=== PATIENT | male | born 1945 | race Caucasian/White ===

== ENCOUNTER 2023-04-05 17:50 | Emergency (ER) | payer OTHER, SELFPAY ==
[2023-04-05 18:47] LABS: Hemoglobin 11.8 g/dL (13.0-18.0); Mean Corp Hgb Conc. 34.7 g/dL (33.0-37.0); Mean Corpuscular Hgb 31.2 pg (27.0-31.0); Mean Corpuscular Volume 89.9 fL (80.0-94.0); Mean Platelet Volume 8.9 fL (7.4-10.4); Platelet Count 268 10^3/uL (130-400); Red Blood Cell Count 3.78 10^6/uL (4.70-6.10); Red Cell Dist. Width 14.1 % (11.5-14.5); White Blood Cell Count 5.8 10^3/uL (4.8-10.8)
[2023-04-05 19:05] LABS: COVID-19 Antigen Negative (Negative)
[2023-04-05 19:07] LABS: ALT (SGPT) 42 U/L (0-50); AST (SGOT) 33 U/L (17-59); Albumin 3.3 g/dl (3.5-5.0); Alkaline Phosphatase 114 U/L (38-126); Blood Urea Nitrogen 32 mg/dl (9-20); Calcium 9.1 mg/dl (8.4-10.2); Carbon Dioxide 23 mmol/L (22-30); Chloride 103 mmol/L (98-107); Glucose 146 mg/dl (70-99); Potassium 4.6 mmol/L (3.5-5.1); Sodium 131 mmol/L (135-145); Total Bilirubin 0.7 mg/dl (0.2-1.3); Total Protein 5.8 g/dl (6.3-8.2); eGFR > 60.00
[2023-04-05 19:15] LABS: Absolute Neutrophils -Man Diff 3.9 10^3/uL (1.4-6.5); Band Neutrophils 2 % (0-3); Eosinophils 1 % (0-6); Lymphocytes 6 % (20-51); Monocytes 25 % (2-9); Normal RBC Morphology Yes; Platelets Checked Yes; Segmented Neutrophils 66 % (42-75); Total Cells Counted 100
[2023-04-05 20:37] VITALS: BMI 23.6
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
[2023-04-05] MEDS: TYLENOL 650 MG PO (21:24)
== END 2023-04-05 22:12 | disposition home or self-care (01) ==
LOC: EMR 17:50
PROVIDERS: Emergency Medicine; EMERGENCY PHYSICIAN Emergency Medicine; FAMILY PHYSICIAN Family Medicine
DX: R53.83 Other fatigue (principal); R05.9 Cough, unspecified; I48.91 Unspecified atrial fibrillation; J10.1 Influenza due to other identified influenza virus with other respiratory manifestations; J44.9 Chronic obstructive pulmonary disease, unspecified; I10 Essential (primary) hypertension; Z86.73 Personal history of transient ischemic attack (TIA), and cerebral infarction without residual deficits
CPT/HCPCS: 99283; 71046; 80053; 85025; 87502; 87811

== ENCOUNTER 2023-07-23 06:06 | Day surgery (SDC) | payer OTHER, SELFPAY ==
[2023-07-17 09:33] VITALS: BMI 23.1
[2023-07-17 09:57] LABS: Hematocrit 38.4 % (39.0-52.0); Hemoglobin 12.6 g/dL (13.0-18.0); Mean Corp Hgb Conc. 32.8 g/dL (33.0-37.0); Mean Corpuscular Hgb 29.6 pg (27.0-31.0); Mean Corpuscular Volume 90.1 fL (80.0-94.0); Mean Platelet Volume 8.9 fL (7.4-10.4); Platelet Count 184 10^3/uL (130-400); Red Blood Cell Count 4.26 10^6/uL (4.70-6.10); Red Cell Dist. Width 14.5 % (11.5-14.5); White Blood Cell Count 6.2 10^3/uL (4.8-10.8)
[2023-07-17 10:07] LABS: APTT 32.6 Sec (23.4-35.0); INR 1.13; PT 14.3 Sec (11.4-14.6)
[2023-07-17 10:10] LABS: Blood Urea Nitrogen 23 mg/dl (9-20); Calcium 9.4 mg/dl (8.4-10.2); Carbon Dioxide 29 mmol/L (22-30); Chloride 107 mmol/L (98-107); Estimated Creatinine Clearance 72 ml/min; Glucose 116 mg/dl (70-99); Potassium 4.5 mmol/L (3.5-5.1); Sodium 138 mmol/L (135-145); eGFR > 60.00
[2023-07-17 10:16] LABS: Urine Albumin Negative (Neg - Trace); Urine Bilirubin Negative (Negative); Urine Character Slightly Cloudy (Clear); Urine Color Yellow; Urine Glucose Negative (Negative); Urine Ketone Negative (Negative); Urine Leukocyte Negative (Negative); Urine Nitrite Negative (Negative); Urine Occult Blood 4+ (Negative); Urine Urobilinogen Negative (Neg - 1+)
[2023-07-17 10:47] LABS: Urine Mucus Few
[2023-07-17 10:48] LABS: Urine Red Blood Cell >100 /HPF (0-2)
[2023-07-17 10:49] LABS: Urine Amorphous Seen; Urine Bacteria Few (Negative)
[2023-07-23] VITALS (7 sets, daily range): BP systolic 90–145; BP diastolic 53–79; BMI 23.1
[2023-07-23] MEDS: CYSVIEW KIT 100 MG INTRAVES (06:51)
[2023-07-23] MEDS: NORMOSOL-R 1000 IV (06:52)
[2023-07-23] MEDS: LOPRESSOR 12.5 MG PO (07:04)
[2023-07-23] MEDS: KEPPRA 500 MG PO (07:04)
[2023-07-23] MEDS: Pyridium 200 MG PO (08:45)
== END 2023-07-23 10:25 | disposition home or self-care (01) ==
LOC: SDS 06:06
PROVIDERS: ATTENDING PHYSICIAN Specialist; FAMILY PHYSICIAN Family Medicine; OTHER PHYSICIAN Internal Medicine Cardiovascular Disease
DX: D49.4 Neoplasm of unspecified behavior of bladder (principal); N30.80 Other cystitis without hematuria; Z85.51 Personal history of malignant neoplasm of bladder
CPT/HCPCS: 52224; C9738; 88307; 36415; 80048; 81003; 81015; 85027; 85610; 85730; 88342

== ENCOUNTER 2024-01-12 06:27 | Day surgery (SDC) | payer OTHER, SELFPAY ==
[2024-01-07 09:42] VITALS: BMI 23.3
[2024-01-07 11:04] LABS: Hematocrit 42.1 % (39.0-52.0); Hemoglobin 13.6 g/dL (13.0-18.0); Mean Corp Hgb Conc. 32.3 g/dL (33.0-37.0); Mean Corpuscular Hgb 30.3 pg (27.0-31.0); Mean Corpuscular Volume 93.8 fL (80.0-94.0); Mean Platelet Volume 9.3 fL (7.4-10.4); Platelet Count 202 10^3/uL (130-400); Red Blood Cell Count 4.49 10^6/uL (4.70-6.10); Red Cell Dist. Width 15.1 % (11.5-14.5); White Blood Cell Count 6.1 10^3/uL (4.8-10.8)
[2024-01-07 12:00] LABS: Blood Urea Nitrogen 34 mg/dl (9-20); Calcium 9.7 mg/dl (8.4-10.2); Carbon Dioxide 28 mmol/L (22-30); Chloride 104 mmol/L (98-107); Estimated Creatinine Clearance 58 ml/min; Glucose 80 mg/dl (70-99); Potassium 4.2 mmol/L (3.5-5.1); Sodium 142 mmol/L (135-145); eGFR > 60.00
[2024-01-12] VITALS (13 sets, daily range): BP systolic 94–132; BP diastolic 53–79; BMI 23.3
[2024-01-12] MEDS: CYSVIEW KIT 100 MG INTRAVES (09:46)
[2024-01-12] MEDS: SYRINGE NON-PUMP 50 MG IRRIG ×2 (11:07→11:09)
[2024-01-12] MEDS: SYRINGE NON-PUMP 50 ML IRRIG ×2 (11:07→11:09)
== END 2024-01-12 13:25 | disposition home or self-care (01) ==
LOC: SDS 06:27
PROVIDERS: ATTENDING PHYSICIAN Specialist; FAMILY PHYSICIAN Family Medicine; OTHER PHYSICIAN Internal Medicine Cardiovascular Disease
DX: C67.9 Malignant neoplasm of bladder, unspecified (principal)
CPT/HCPCS: 52235; C9738; 88307; 36415; 80048; 85027; 93005; A9589

== ENCOUNTER 2024-01-20 23:53 | Emergency (ER) | payer OTHER, SELFPAY ==
[2024-01-20 23:57] VITALS: BP 156/74; BMI 23.2
[2024-01-21 00:12] LABS: % Basophils 0.5 % (0-2); % Eosinophils 9.8 % (0-6); % Immature Granulocytes 0.2 % (0-0.5); % Lymphocytes 8.6 % (20.5-51.1); % Monocytes 11.3 % (1.7-9.3); % Neutrophils 69.6 % (42.2-75.2); Absolute Eosinophils 0.8 10^3/uL (0-0.7); Absolute Lymphocytes 0.7 10^3/uL (1.2-3.4); Absolute Monocytes 0.9 10^3/uL (0.1-0.6); Absolute Neutrophils 5.7 10^3/uL (1.4-6.5); Hematocrit 36.3 % (39.0-52.0); Hemoglobin 12.6 g/dL (13.0-18.0); Mean Corp Hgb Conc. 34.7 g/dL (33.0-37.0); Mean Corpuscular Hgb 30.2 pg (27.0-31.0); Mean Corpuscular Volume 87.1 fL (80.0-94.0); Mean Platelet Volume 9.1 fL (7.4-10.4); Nucleated Red Blood Cells % 0 % (-); Platelet Count 141 10^3/uL (130-400); Red Blood Cell Count 4.17 10^6/uL (4.70-6.10); White Blood Cell Count 8.2 10^3/uL (4.8-10.8)
[2024-01-21 00:30] LABS: ALT (SGPT) 30 U/L (0-50); AST (SGOT) 27 U/L (17-59); Albumin 3.8 g/dl (3.5-5.0); Alkaline Phosphatase 158 U/L (38-126); Blood Urea Nitrogen 31 mg/dl (9-20); Calcium 9.3 mg/dl (8.4-10.2); Carbon Dioxide 21 mmol/L (22-30); Chloride 106 mmol/L (98-107); Estimated Creatinine Clearance 63 ml/min; Glucose 127 mg/dl (70-99); Potassium 4.2 mmol/L (3.5-5.1); Sodium 140 mmol/L (135-145); Total Bilirubin 0.4 mg/dl (0.2-1.3); Total Protein 6.1 g/dl (6.3-8.2); eGFR > 60.00
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
[2024-01-21 02:05] LABS: Urine Albumin 3+ (Neg - Trace); Urine Bilirubin Negative (Negative); Urine Character Bloody (Clear); Urine Color Red; Urine Glucose Negative (Negative); Urine Ketone Negative (Negative); Urine Leukocyte 1+ (Negative); Urine Nitrite Positive (Negative); Urine Occult Blood 4+ (Negative); Urine Specific Gravity 1.015 (<1.030); Urine Urobilinogen Negative (Neg - 1+)
[2024-01-21 02:18] LABS: Urine Red Blood Cell >100 /HPF (0-2)
--- NOTE | 2024-01-21 03:22 | EDRN ---
20 trinidadian catheter,(silicone due to latex allergy) was placed without difficulty. Bloody drainage in return. Dr. Seo aware. Multiple manual irrigations completed.
[2024-01-21] MEDS: MONUROL 3 GM PO (03:39)
--- NOTE | 2024-01-21 03:52 | EDRN ---
Leg bag put on at this time as patient is discharged
== END 2024-01-21 03:53 | disposition home or self-care (01) ==
LOC: EMR 23:53
PROVIDERS: EMERGENCY PHYSICIAN Emergency Medicine; FAMILY PHYSICIAN Family Medicine
DX: R31.0 Gross hematuria (principal); I48.91 Unspecified atrial fibrillation; J44.9 Chronic obstructive pulmonary disease, unspecified; I10 Essential (primary) hypertension; Z86.73 Personal history of transient ischemic attack (TIA), and cerebral infarction without residual deficits; Z98.890 Other specified postprocedural states; Z79.01 Long term (current) use of anticoagulants
CPT/HCPCS: 51702; 99283; 80053; 81003; 81015; 85025; 87086

== ENCOUNTER 2024-01-21 15:58 | Inpatient (IN) | payer OTHER, SELFPAY ==
[2024-01-21] VITALS (11 sets, daily range): BP systolic 90–144; BP diastolic 57–68; BMI 23.8; BMI 22.4
[2024-01-21 13:09] LABS: Urine Albumin 3+ (Neg - Trace); Urine Bilirubin 1+ (Negative); Urine Character Bloody (Clear); Urine Color Red; Urine Glucose Negative (Negative); Urine Ketone 1+ (Negative); Urine Leukocyte Negative (Negative); Urine Nitrite Negative (Negative); Urine Occult Blood 4+ (Negative); Urine Specific Gravity 1.015 (<1.030); Urine Urobilinogen Negative (Neg - 1+)
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
[2024-01-21 13:26] LABS: Urine Red Blood Cell >100 /HPF (0-2)
--- NOTE | 2024-01-21 14:22 | CON.MD ---
Addendum entered and electronically signed by Puneet Ramirez Jr., MD 01/21/24 16:56:
pt re-examined
on moderate drip urine is very light pink with no clots
labs stable
pt comfortable
will observe on cbi for now
Original Note:
Consultation - Medical
-
see dictated note
pt with afib/remote hx of stroke on eliquis
hx of bladder cancer and prior episodes of clot retention after procedures
underwent turbt with dr del toro last week- eliquis held for 7 days- restarted on thursday- now with gross hematuria and clot retention- mitchell was placed in ER yesterday but returned to day
3 way mitchell placed- moderate amount of clot irrigated- on high rate drip urine pink
plan
admit to med service
hold eliquis and any blood thinners
cbi
possible OR if fails to clear
reviewed with pt and at bedside
[2024-01-21] MEDS: NSS 1000 IV (14:43)
[2024-01-21 14:45] LABS: % Basophils 0.6 % (0-2); % Eosinophils 5.1 % (0-6); % Immature Granulocytes 0.3 % (0-0.5); % Lymphocytes 10.2 % (20.5-51.1); % Monocytes 13.8 % (1.7-9.3); Absolute Eosinophils 0.4 10^3/uL (0-0.7); Absolute Lymphocytes 0.7 10^3/uL (1.2-3.4); Hematocrit 36.5 % (39.0-52.0); Hemoglobin 12.3 g/dL (13.0-18.0); Mean Corp Hgb Conc. 33.7 g/dL (33.0-37.0); Mean Corpuscular Hgb 29.6 pg (27.0-31.0); Nucleated Red Blood Cells % 0 % (-); Red Blood Cell Count 4.15 10^6/uL (4.70-6.10); Red Cell Dist. Width 14.8 % (11.5-14.5); White Blood Cell Count 7.1 10^3/uL (4.8-10.8)
[2024-01-21 15:01] LABS: ALT (SGPT) 27 U/L (0-50); AST (SGOT) 26 U/L (17-59); Albumin 3.5 g/dl (3.5-5.0); Alkaline Phosphatase 118 U/L (38-126); Blood Urea Nitrogen 27 mg/dl (9-20); Calcium 9.3 mg/dl (8.4-10.2); Carbon Dioxide 25 mmol/L (22-30); Chloride 104 mmol/L (98-107); Estimated Creatinine Clearance 70 ml/min; Glucose 98 mg/dl (70-99); Potassium 3.7 mmol/L (3.5-5.1); Sodium 137 mmol/L (135-145); Total Bilirubin 0.6 mg/dl (0.2-1.3); Total Protein 5.7 g/dl (6.3-8.2); eGFR > 60.00
[2024-01-21 15:05] LABS: Platelet Count 160 10^3/uL (130-400)
[2024-01-21 15:06] LABS: Mean Platelet Volume 9.2 fL (7.4-10.4)
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
[2024-01-21] MEDS: ANCEF 5 IV ×2 (16:48→23:31)
--- NOTE | 2024-01-21 17:30 | PTCARENOTE ---
Patient received to room 416-02 from ED on stretcher. Patient assisted into bed by nursing staff and oriented to room. CBI running as ordered with light punch colored drainage in urine bag. Call bob in reach and patient verbalizes understanding to
ring for needs.
--- NOTE | 2024-01-21 18:26 | PTCARENOTE ---
Patient with asymptomatic a-fib/flutter rate 40-50 bpm. Patient verbalizes he usually has a heart rate in the 50's. Telemetry recording placed in chart. Will continue to monitor.
[2024-01-21] MEDS: KEPPRA 500 MG PO (20:55)
[2024-01-21 22:29] LABS: Hemoglobin 11.7 g/dL (13.0-18.0)
[2024-01-22] MEDS: NSS 1000 IV ×2 (02:31→15:11)
[2024-01-22 03:21] VITALS: BP 119/67
--- NOTE | 2024-01-22 06:32 | W.PN.URO.CBU ---
Today's Communication / Plan
-
wean cbi as tolerated
Assessment / Plan
-
post op hematuria/clot retention
pt improving
urine clear in moderate rate cbi
no need for OR today
UOOB/regular diet/check labs and wean cbi
hold eliquis- will discuss with dr del toro timing of restart
possible OR if hematuria recurrs
Diagnosis
-
Date of Service: January 22, 2024
-
Patient Diagnosis:
s/p TURBT- post op hematuria
Subjective
-
pt comfortable
stable overnight
urine clear on moderate drip cbi
Objective
-
Vital Signs
Temp Pulse Resp BP Pulse Ox
97.5 F 57 18 119/67 97
01/22/24 03:21 01/22/24 03:21 01/22/24 03:21 01/22/24 03:21 01/22/24 03:21
Intake and Output
01/20/24 01/21/24 01/22/24
06:59 06:59 06:59
Intake Total 1080 / 1080
Output Total 700 / 700
Balance 380 / 380
Intake:
Oral fluids 120 / 120
IV fluids (Total) 960 / 960
Output:
True Urine Output from CBI 700 / 700
Review of Systems
-
Constitutional: Fatigue
Respiratory: No Symptoms
Cardiac: No Symptoms
Abdomen/GI: No Symptoms
Physical Exam
-
General - no acute distress
Abdomen - soft, non-tender
Genitalia - normal- 3 way [address]
Skin - warm & dry with no rash
Neuro - AOx3, no motor deficits
Extremities - no clubbing, no cyanosis, no edema
[2024-01-22 06:39] LABS: Hematocrit 34.1 % (39.0-52.0); Hemoglobin 11.6 g/dL (13.0-18.0); Mean Corpuscular Hgb 30.5 pg (27.0-31.0); Mean Corpuscular Volume 89.7 fL (80.0-94.0); Mean Platelet Volume 8.8 fL (7.4-10.4); Platelet Count 124 10^3/uL (130-400); Red Cell Dist. Width 14.8 % (11.5-14.5); White Blood Cell Count 4.6 10^3/uL (4.8-10.8)
[2024-01-22 06:58] LABS: Blood Urea Nitrogen 19 mg/dl (9-20); Calcium 8.7 mg/dl (8.4-10.2); Carbon Dioxide 28 mmol/L (22-30); Chloride 108 mmol/L (98-107); Estimated Creatinine Clearance 67 ml/min; Glucose 75 mg/dl (70-99); Magnesium 1.9 mg/dl (1.6-2.3); Potassium 4.2 mmol/L (3.5-5.1); Sodium 141 mmol/L (135-145); eGFR > 60.00
[2024-01-22 07:34] VITALS: BP 119/62
[2024-01-22] MEDS: TOPROL XL 12.5 MG PO (08:48)
[2024-01-22] MEDS: KEPPRA 500 MG PO ×2 (08:49→20:35)
[2024-01-22] MEDS: ANCEF 5 IV ×3 (08:49→23:27)
--- NOTE | 2024-01-22 09:58 | W.PN.HOSP.TC ---
Today's Communication/Plan
-
see outlined plan
Assessment / Plan
Assessment / Plan
Assessment:
Hematuria
Bladder Tumor status post transurethral resection of bladder tumor on 01/12/24
- continue CBI via [address] way Amos
- appreciate Urology
- trend Hb. relatively stable >11
- continue IV Cefazolin started by Urology; pending culture
- hold Eliquis until cleared by Urology to resume
Seizures
- continue Keppra
Atrial Fibrillation
- hold Eliquis until cleared by Urology to resume
- Metoprolol with hold parameters
Essential Hypertension
- hold spironolactone
COPD
- albuterol PRN
Thrombocytopenia
- suspect consumptive in setting of hematuria
- will monitor
- not currently on heparin based products
DVT ppx: SCDs
Code: Full
Anticipated Discharge: 24 - 48 hours
Subjective/Interval History
-
Date of Service: January 22, 2024
comfortable, no overnight events
urine is now clearing on the CBI
Objective Data
-
Labs:
Laboratory Results
01/21/24 01/22/24
21:59 06:01
WBC 4.6 L
Hgb 11.7 L 11.6 L
Hct 34.1 L
Plt Count 124 L D
Sodium 141
Potassium 4.2
Chloride 108 H
Carbon Dioxide 28
BUN 19
Creatinine 1.0
Glucose 75
Calcium 8.7
Vital Signs:
Vital Signs
Temp Pulse Resp BP Pulse Ox
97.8 F 57 19 119/62 98
01/22/24 07:34 01/22/24 07:34 01/22/24 07:34 01/22/24 07:34 01/22/24 07:34
I&O
01/21/24 01/22/24 01/23/24
06:59 06:59 06:59
Intake Total 1080 / 1080
Output Total 700 / 700
Balance 380 / 380
Physical Exam
-
General: No Apparent Distress
HEENT: Normocephalic and Atraumatic
Respiratory: Negative Wheezes
Cardiac: Regular Rhythm and S1/S2
GI: Soft and Nontender
Genito-urinary: Amos and Continuous Bladder Irrigation
Musculoskeletal: No Edema
Neuro: AO x 3
Hematologic / Lymphatic: No Lymphadenopathy
Psych: Calm
Data Reviewed
-
Total Time Spent with Patient (in minutes): 41
Labs: Labs Reviewed by me
[2024-01-22 11:05] VITALS: BP 126/67
--- NOTE | 2024-01-22 14:56 | CM ---
Pt seen bedside w/ family. Pt lives w/ spouse in [place] to enter home
Independent. Per pt he has cane and walker but does not use them. Pt has shower chair, shower rails and raised toilet seat in the home but denies the need for them so he does not use.
Denies SNF hx. Engaged in OP rehab at [place] in the past
Had [facility] VN/PT in the past
Denies financial insecurities
Address, point of contacts and insurance verified
PCP: Dr. Jairo Naylor
Pharmacy: [facility]
Per pt, he does not wish to be seen by PT/OT as he is independent and have been walking around while in hospital independently
Per pt, spouse will transport home at d/c
Plan: Home no needs anticipated
--- NOTE | 2024-01-22 15:09 | PN.CDI ---
CDI
- -
CDI:
Physician Documentation Request
Admit Date: 01/21/24 15:58
Dear Doctor Luis Miguel,
Patient admitted with hematuria.
ED note,'....on Eliquis bladder cancer with transurethral resection of bladder tumor with bluelight cystoscopy and intravesical administration of chemotherapy January [address] Hdz.
01/21 PN, 'Hematuria....Bladder Tumor status post transurethral resection of bladder tumor on 01/12/24.'
01/21 WBC 4.6, RBC 3.80 and platelet count 124.
Based on the above, please clarify in the progress notes, the appropriate diagnosis, if significant, that supports the above abnormalities and additional evaluation, monitoring and/or treatment rendered:
Pancytopenia due to intravesical administration of chemotherapy and bladder cancer
Pancytopenia, other etiology
Other
Use of terms such as suspected, likely, concern for, or probable (associated with a specific diagnosis that is being evaluated, monitored, or treated as if it exists) are acceptable and can be coded in the inpatient setting, when documented at the
time of discharge.
Thank you,
Melly MCCORMICK,RN,CCDS
CDI Specialist
Available via [place] text
Please use your independent medical judgment in providing your response.
[2024-01-22 16:19] VITALS: BP 113/60
[2024-01-22 19:00] VITALS: BP 146/61
[2024-01-22 23:00] VITALS: BP 125/64
--- NOTE | 2024-01-23 01:17 | W.PN.UPDATE ---
Addendum entered and electronically signed by RADHA Chambers 01/23/24 03:35:
RN reports pt has not needed any more irrigation for clots. urine clear now. Will clamp cbi at 5 am.
Original Note:
Update Note
Progress Note Update
2229 RN stated there is order to stop cbi at midnight. Rn concerned as pt has been needing hand irrigation along with CBI for large amt clots. Urine remains light pink. Will hold off clamping at midnight for now, but if pt needing less hand
irrigation will clamp in am.
[2024-01-23 03:00] VITALS: BP 121/65
[2024-01-23 06:52] LABS: Hematocrit 35.5 % (39.0-52.0); Hemoglobin 11.7 g/dL (13.0-18.0); Mean Corpuscular Hgb 30.5 pg (27.0-31.0); Mean Corpuscular Volume 92.7 fL (80.0-94.0); Mean Platelet Volume 8.9 fL (7.4-10.4); Platelet Count 127 10^3/uL (130-400); Red Blood Cell Count 3.83 10^6/uL (4.70-6.10); Red Cell Dist. Width 14.9 % (11.5-14.5); White Blood Cell Count 5.9 10^3/uL (4.8-10.8)
[2024-01-23 07:10] VITALS: BP 124/63
[2024-01-23 07:29] LABS: Blood Urea Nitrogen 20 mg/dl (9-20); Calcium 8.8 mg/dl (8.4-10.2); Carbon Dioxide 28 mmol/L (22-30); Chloride 107 mmol/L (98-107); Estimated Creatinine Clearance 67 ml/min; Glucose 93 mg/dl (70-99); Potassium 4.1 mmol/L (3.5-5.1); Sodium 139 mmol/L (135-145); eGFR > 60.00
--- NOTE | 2024-01-23 08:24 | W.PN.HOSP.TC ---
Addendum entered and electronically signed by Eden Bolanos MD 01/23/24 15:24:
Amos removed, voided well - ok'd by Urology for DC and resume Eliquis 01/25
Original Note:
Today's Communication/Plan
-
CBI clamped
await Urology recs today re removing CBI and/or Amos. Also clarification on further need of antibiotics
Assessment / Plan
Assessment / Plan
Assessment:
Hematuria
Bladder Tumor status post transurethral resection of bladder tumor on 01/12/24
- CBI via 3 way Amos; currently clamped
- appreciate Urology
- trend Hb. relatively stable >11
- IV Cefazolin per Urology; culture is negative
- hold Eliquis until cleared by Urology to resume
Seizures
- continue Keppra
Atrial Fibrillation
- hold Eliquis until cleared by Urology to resume
- Metoprolol with hold parameters
Essential Hypertension
- hold spironolactone
COPD
- albuterol PRN
No Pancytopenia (leukopenia is transient and it was low for 1 day, thrombocytopenia and anemia from bleeding and consumption of platelets due to bleeding)
- suspect consumptive in setting of hematuria
- will monitor
- not currently on heparin based products
DVT ppx: SCDs
Code: Full
Anticipated Discharge: Within 24 hours
Subjective/Interval History
-
Date of Service: January 23, 2024
CBI clamped at 5 AM and urine now yellow
he denies any complaints
Objective Data
-
Labs:
Laboratory Results
01/23/24
06:32
WBC 5.9
Hgb 11.7 L
Hct 35.5 L
Plt Count 127 L
Sodium 139
Potassium 4.1
Chloride 107
Carbon Dioxide 28
BUN 20
Creatinine 1.0
Glucose 93
Calcium 8.8
Vital Signs:
Vital Signs
Temp Pulse Resp BP Pulse Ox
97.6 F 58 18 124/63 97
01/23/24 07:10 01/23/24 07:10 01/23/24 07:10 01/23/24 07:10 01/23/24 07:10
I&O
01/22/24 01/23/24 01/24/24
06:59 06:59 06:59
Intake Total 1080 / 1080 960 / 960
Output Total 700 / 700 1200 / 1200
Balance 380 / 380 -240 / -240
Physical Exam
-
General: No Apparent Distress
HEENT: Normocephalic and Atraumatic
Respiratory: Negative Wheezes
Cardiac: Regular Rhythm and S1/S2
GI: Soft
Genito-urinary: No Costovertebral Tender, Amos and Continuous Bladder Irrigation (now clamped)
Neuro: AO x 3
Hematologic / Lymphatic: No Lymphadenopathy
Psych: Calm
Data Reviewed
-
Total Time Spent with Patient (in minutes): 42
Labs: Labs Reviewed by me
[2024-01-23] MEDS: ANCEF 5 IV (08:31)
[2024-01-23] MEDS: TOPROL XL 12.5 MG PO (08:32)
[2024-01-23] MEDS: KEPPRA 500 MG PO (08:32)
--- NOTE | 2024-01-23 10:51 | W.PN.URO.CBU ---
Today's Communication / Plan
-
Remove mitchell
Hold Eliquis until 01/25
Follow up with Ru[facility]
Assessment / Plan
-
78M with post op hematuria/clot retention after TURBT, started after resuming Eliquis
Hematuria resolved with CBI clamped overnight
Remove mitchell this AM for trial of void
Hold Eliquis for additional 3 days, can restart on 01/25
Stable for discharge from standpoint if voiding without difficulty or hematuria this afternoon
Diagnosis
-
Date of Service: January 23, 2024
-
Patient Diagnosis:
s/p TURBT- post op hematuria
Subjective
-
Hematuria resolved
Catheter well tolerated
Objective
-
Vital Signs
Temp Pulse Resp BP Pulse Ox
97.6 F 58 18 124/63 97
01/23/24 07:10 01/23/24 07:10 01/23/24 07:10 01/23/24 07:10 01/23/24 07:10
Intake and Output
01/22/24 01/23/24 01/24/24
06:59 06:59 06:59
Intake Total 1080 / 1080 960 / 960
Output Total 700 / 700 1200 / 1200
Balance 380 / 380 -240 / -240
Intake:
Oral fluids 120 / 120 960 / 960
IV fluids (Total) 960 / 960
Output:
True Urine Output from CBI 700 / 700 1200 / 1200
Laboratory Results
01/23/24 06:32
01/23/24 06:32
Physical Exam
-
General - well developed, well nourished, no acute distress
Chest - clear bilaterally
Abdomen - soft, non-tender
- mitchell in place, clear urine off CBI
[2024-01-23 11:35] VITALS: BP 100/51
--- NOTE | 2024-01-23 11:44 | CM ---
CM reviewed pt with Dr Bolanos- ADC today/tomorrow pending uro
Bedside meeting with pt and spouse
No dc noted
IMM verbally completed- copy provided
Discharge Disposition- home, no needs- family transport
--- NOTE | 2024-01-23 14:30 | W.DS.TRANS ---
DC Summary - [employer]
-
Discharge Instructions:
Sleep Apnea Risk Intermediate
Discharge Diagnosis/Procedures hematuria and clot retention requiring CBI
Diet Regular
Activity As tolerated
Bathing Restrictions None
Instructions:
Stand-Alone Forms:
Changes to Home Medications: No
Discharge Medications:
DC Medications w/original date entered in [employer]
vitamin B complex 1 tab PO DAILY Supplement 10/20/18
levetiracetam 500 mg tablet 500 mg PO BID Seizures 07/28/20
ascorbic acid (vitamin C) 500 mg tablet (Vitamin C) 1,000 mg PO DAILY Supplement 03/29/23
Methyl Combo 1 cap PO BID 01/05/24
cholecalciferol (vitamin D3) 50 mcg (2,000 unit) capsule (Vitamin D3) 50 mcg PO DAILY Supplement 01/05/24
glutathione 1 tab PO BID Supplement 01/05/24
hawthorn alfonso 565 mg PO BID Supplement 01/05/24
magnesium glycinate 100 mg (as glycinate) tablet 100 mg PO BID Supplement 01/05/24
metoprolol succinate 25 mg tablet,extended release 24 hr 12.5 mg PO DAILY Arrhythmia 01/05/24
prasterone (dhea)-calcium carbonate 10 mg-47 mg calcium tablet (DHEA) 2 tab PO DAILY Supplement 01/05/24
albuterol sulfate 90 mcg/actuation aerosol inhaler 2 puff inhalation R Q4HPRN PRN sob 01/21/24
coenzyme Q10 100 mg capsule (CoQ-10) 300 mg PO QPM Supplement 01/21/24
spironolactone 25 mg tablet 12.5 mg PO DAILY Blood Pressure 01/21/24
apixaban 5 mg tablet (Eliquis) 5 mg PO BID #60 tabs 01/23/24
Home Medication Changes
Pending Results: No
Total time spent discharging patient (in min): 41
[2024-01-23 15:17] VITALS: BP 111/58
== END 2024-01-23 16:44 | disposition home or self-care (01) | DRG 696 ==
LOC: 4 WEST ACU 15:58
PROVIDERS: Nurse Practitioner; Physician Assistant; ADMITTING PHYSICIAN Student in an Organized Health Care Education/Training Program; ATTENDING PHYSICIAN Internal Medicine; CONSULT PHYSICIAN Specialist; EMERGENCY PHYSICIAN Student in an Organized Health Care Education/Training Program; FAMILY PHYSICIAN Family Medicine
DX: R31.9 Hematuria, unspecified (principal); D68.9 Coagulation defect, unspecified; G40.909 Epilepsy, unspecified, not intractable, without status epilepticus; I10 Essential (primary) hypertension; J44.9 Chronic obstructive pulmonary disease, unspecified; D64.9 Anemia, unspecified; D69.59 Other secondary thrombocytopenia; Z79.01 Long term (current) use of anticoagulants; Z86.73 Personal history of transient ischemic attack (TIA), and cerebral infarction without residual deficits; Z85.51 Personal history of malignant neoplasm of bladder
CPT/HCPCS: 51702; 80048; 80053; 81003; 81015; 83735; 85018; 85025; 85027; 93005; 96360; 96361; 99285

== ENCOUNTER 2024-03-21 23:40 | Inpatient (IN) | payer OTHER, SELFPAY ==
[2024-03-21 20:32] VITALS: BP 123/58
[2024-03-21 20:38] VITALS: BMI 23.4
[2024-03-21 20:49] LABS: % Basophils 0.3 % (0-2); % Immature Granulocytes 0.3 % (0-0.5); % Lymphocytes 2.4 % (20.5-51.1); Absolute Eosinophils 0.2 10^3/uL (0-0.7); Absolute Lymphocytes 0.3 10^3/uL (1.2-3.4); Absolute Monocytes 1.1 10^3/uL (0.1-0.6); Absolute Neutrophils 10.6 10^3/uL (1.4-6.5); Hematocrit 39.4 % (39.0-52.0); Mean Corpuscular Hgb 29.7 pg (27.0-31.0); Mean Corpuscular Volume 90.2 fL (80.0-94.0); Mean Platelet Volume 8.7 fL (7.4-10.4); Nucleated Red Blood Cells % 0 % (-); Platelet Count 207 10^3/uL (130-400); Red Blood Cell Count 4.37 10^6/uL (4.70-6.10); White Blood Cell Count 12.3 10^3/uL (4.8-10.8)
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
[2024-03-21 21:01] VITALS: BP 121/61
[2024-03-21 21:02] LABS: Lactic Acid 0.9 mmol/L (0.7-2.0)
[2024-03-21 21:03] LABS: ALT (SGPT) 20 U/L (0-50); AST (SGOT) 19 U/L (17-59); Albumin 3.4 g/dl (3.5-5.0); Alkaline Phosphatase 132 U/L (38-126); Blood Urea Nitrogen 35 mg/dl (9-20); Calcium 9.4 mg/dl (8.4-10.2); Carbon Dioxide 23 mmol/L (22-30); Chloride 104 mmol/L (98-107); Estimated Creatinine Clearance 54 ml/min; Glucose 144 mg/dl (70-99); Potassium 4.2 mmol/L (3.5-5.1); Sodium 132 mmol/L (135-145); Total Bilirubin 0.5 mg/dl (0.2-1.3); eGFR 55.88
[2024-03-21] MEDS: TYLENOL 650 MG PO (21:49)
[2024-03-21] MEDS: NSS 1000 IV (21:50)
[2024-03-21 21:56] VITALS: BP 102/55
[2024-03-21 22:00] VITALS: BP 101/55
[2024-03-21 22:07] LABS: Urine Albumin 3+ (Neg - Trace); Urine Bilirubin Negative (Negative); Urine Character Very Cloudy (Clear); Urine Color Yellow; Urine Glucose Negative (Negative); Urine Ketone Negative (Negative); Urine Leukocyte 2+ (Negative); Urine Nitrite Negative (Negative); Urine Occult Blood 4+ (Negative); Urine Urobilinogen Negative (Neg - 1+)
[2024-03-21 22:25] LABS: COVID-19 Antigen Negative (Negative)
[2024-03-21 22:30] VITALS: BP 99/60
[2024-03-21 22:43] LABS: Urine Squamous Cell 0-2 /LPF (Few)
[2024-03-21 22:46] LABS: Urine Bacteria Moderate (Negative); Urine Red Blood Cell >100 /HPF (0-2); Urine White Cell >100 /HPF (0-5)
[2024-03-21 23:00] VITALS: BP 100/53
[2024-03-21] MEDS: KEPPRA 500 MG PO (23:19)
[2024-03-21] MEDS: ROCEPHIN 1000 MG IV (23:19)
[2024-03-21] MEDS: ELIQUIS 5 MG PO (23:19)
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
[2024-03-22] VITALS (12 sets, daily range): BP systolic 92–133; BP diastolic 51–75; BMI 23.4; BMI 23.3
[2024-03-22] MEDS: LR 1000 IV (00:25)
--- NOTE | 2024-03-22 04:00 | PTCARENOTE ---
Received verbal and written report from [facility] [place]. Pt arrived from ED via stretcher. at bedside. Pt aaox3. afib on monitor, hr 65. Pt oriented to unit and admission assessment completed (see worklist). LR infusing at 100 mL/hr. Pt resting in
bed with call bob in reach and able to make needs known.
[2024-03-22 04:15] LABS: Hematocrit 35.4 % (39.0-52.0); Hemoglobin 11.9 g/dL (13.0-18.0); Mean Corp Hgb Conc. 33.6 g/dL (33.0-37.0); Mean Corpuscular Hgb 30.2 pg (27.0-31.0); Mean Corpuscular Volume 89.8 fL (80.0-94.0); Mean Platelet Volume 8.8 fL (7.4-10.4); Platelet Count 192 10^3/uL (130-400); Red Blood Cell Count 3.94 10^6/uL (4.70-6.10); Red Cell Dist. Width 13.9 % (11.5-14.5)
[2024-03-22 04:39] LABS: Blood Urea Nitrogen 28 mg/dl (9-20); Calcium 8.5 mg/dl (8.4-10.2); Carbon Dioxide 23 mmol/L (22-30); Chloride 107 mmol/L (98-107); Estimated Creatinine Clearance 63 ml/min; Glucose 121 mg/dl (70-99); Potassium 3.9 mmol/L (3.5-5.1); Sodium 137 mmol/L (135-145); eGFR > 60.00
[2024-03-22] MEDS: KEPPRA 500 MG PO ×2 (07:40→20:33)
[2024-03-22] MEDS: ELIQUIS 5 MG PO ×2 (07:40→20:33)
--- NOTE | 2024-03-22 07:56 | W.PN.HOSP.TC ---
Today's Communication/Plan
-
Pending Urology consultation, urine and blood cultures results, and clinical course.
Assessment / Plan
Assessment / Plan
#SIRS suspect acute immune reaction to BCG Tx rather than infective ; Hypotensive - BP stable at this time w systolic in the 90s (pt says they typically run in the 90s in the morning)
#Bladder Tumor status post transurethral resection of bladder tumor on 01/12/24
#S/P 5th BCG for bladder tumor 03/21/24
- BCx pending
- f/u Ucx pending
- Continue empiric IV CFTZ for now
- LR IVF , continue
#Seizures HX
- continue Keppra
#HX Perm A Fibrillation
- c/w Eliquis until cleared by Urology to resume
- Hold Metoprolol
#Essential Hypertension
- hold spironolactone, Metoprolo
#COPD
- stable
- albuterol PRN
DVT ppx: on Eliquis
Code: Full
IMU
Anticipated Discharge: Within 24 hours
Subjective/Interval History
-
Date of Service: March 22, 2024
The patient is feeling well today, no complaints other than he urinated on himself when trying to use the bedside urinal. No fevers currently, no SOB, no CP, no dysuria.
Objective Data
-
Labs:
Laboratory Results
03/21/24 03/22/24
20:40 03:57
WBC 12.3 H 9.0
Hgb 13.0 11.9 L
Hct 39.4 35.4 L
Plt Count 207 192
Sodium 132 L 137
Potassium 4.2 3.9
Chloride 104 107
Carbon Dioxide 23 23
BUN 35 H 28 H
Creatinine 1.3 1.1
Glucose 144 H 121 H
Calcium 9.4 8.5
Total Bilirubin 0.5
AST 19
ALT 20
Alkaline Phosphatase 132 H
Vital Signs:
Vital Signs
Temp Pulse Resp BP Pulse Ox
98.7 F 59 25 97/58 97
03/22/24 04:00 03/22/24 06:08 03/22/24 06:08 03/22/24 06:08 03/22/24 06:08
Review of Systems
-
History Source: Patient
All other systems: Reviewed and negative
Physical Exam
-
General: Well Developed, Well Nourished, No Apparent Distress and Comfortable
HEENT: Normocephalic, Atraumatic and Moist Mucous Membranes
Respiratory: Clear to Auscultation
Cardiac: Regular Rhythm and S1/S2
GI: Soft, Nontender and Nondistended
Musculoskeletal: No Clubbing, No Cyanosis and No Edema
Skin: Warm and Dry
Neuro: AO x 3 and No Motor Deficits
Psych: Calm
Data Reviewed
-
Diagnostic Radiology: Report Reviewed by me
Labs: Labs Reviewed by me, Discussed with Patient and Discussed with Family
--- NOTE | 2024-03-22 08:50 | W.PN.URO.CBU ---
Today's Communication / Plan
-
continue present cARE AWAIT CXS
Assessment / Plan
-
PT HAD POST BCG FEVER HYPOTENSION Can be uti due to instrumentation or rxn to bcg finally off chance bcg osis will await blood and urine cxs and continue present care
Diagnosis
-
Date of Service: March 22, 2024
-
Patient Diagnosis:post BCG FEVR HYPOTENDSION POSSIBLE UTI VS RXN TO BCG R/OUT BCG OSIS
Post Op Day:
Subjective
-
FEELING BETTER NO CHILLS FEVVR
Objective
-
Vital Signs
Temp Pulse Resp BP Pulse Ox
98.4 F 59 25 97/58 97
03/22/24 07:11 03/22/24 06:08 03/22/24 06:08 03/22/24 06:08 03/22/24 06:08
Intake and Output
03/21/24 03/22/24 03/23/24
06:59 06:59 06:59
Other:
Number of approximated MODERATE 2
amounts of urine
Laboratory Results
03/22/24 03:57
03/22/24 03:57
Review of Systems
-
Constitutional: Fever and Night Sweats
: Frequency and Urgency
Physical Exam
-
General - well developed, well nourished, no acute distress
Chest - clear bilaterally
Abdomen - soft, non-tender, positive bowel sounds, no CVAT, no incisional pain or distention
Genitalia - normal
Rectal - normal
Skin - warm & dry with no rash
Neuro - AOx3, no motor deficits
Extremities - no clubbing, no cyanosis, no edema
Incision - clean, dry
Dressing - clean, dry, intact
Care Review
Data Reviewed
Discussed with: Family
--- NOTE | 2024-03-22 11:08 | PTCARENOTE ---
Assumed care of pt from maintenance technician 3rd shift RN. Gretchen3. Afib on monitoring tech, HRs 50s. Spo2 97% on room air. VSS. IVF discontinued. Assessment documented. Pt resting in bed, call bob in reach. Downgrade orders placed for telemetry.
--- NOTE | 2024-03-22 12:00 | PTCARENOTE ---
Pt transferred to [facility].
--- NOTE | 2024-03-22 15:07 | CM ---
Patient lives with spouse in a multilevel home, patient is independent with adl's and ambulation, no dme, patient drives. home when stable, no needs.
PCP: Jairo
Pharmacy: [facility] in [place]
Plan; Home no needs.
[2024-03-22] MEDS: STERILE WATER FOR INJECTION 10 ML IV (21:43)
[2024-03-22] MEDS: ROCEPHIN 1000 MG IV (21:44)
[2024-03-23 03:00] VITALS: BP 106/58
[2024-03-23 05:54] VITALS: BMI 22.8
[2024-03-23 07:22] VITALS: BP 119/62
[2024-03-23 08:19] LABS: % Basophils 0.6 % (0-2); % Eosinophils 16.1 % (0-6); % Immature Granulocytes 0.4 % (0-0.5); % Monocytes 19.3 % (1.7-9.3); % Neutrophils 52.6 % (42.2-75.2); Absolute Eosinophils 1.1 10^3/uL (0-0.7); Absolute Lymphocytes 0.7 10^3/uL (1.2-3.4); Absolute Monocytes 1.3 10^3/uL (0.1-0.6); Absolute Neutrophils 3.5 10^3/uL (1.4-6.5); Hematocrit 34.7 % (39.0-52.0); Hemoglobin 11.5 g/dL (13.0-18.0); Mean Corp Hgb Conc. 33.1 g/dL (33.0-37.0); Mean Corpuscular Hgb 30.1 pg (27.0-31.0); Mean Corpuscular Volume 90.8 fL (80.0-94.0); Mean Platelet Volume 9.3 fL (7.4-10.4); Nucleated Red Blood Cells % 0 % (-); Platelet Count 196 10^3/uL (130-400); Red Blood Cell Count 3.82 10^6/uL (4.70-6.10); Red Cell Dist. Width 14.1 % (11.5-14.5); White Blood Cell Count 6.7 10^3/uL (4.8-10.8)
[2024-03-23 08:25] LABS: Blood Urea Nitrogen 23 mg/dl (9-20); Calcium 8.7 mg/dl (8.4-10.2); Carbon Dioxide 29 mmol/L (22-30); Chloride 104 mmol/L (98-107); Estimated Creatinine Clearance 62 ml/min; Glucose 97 mg/dl (70-99); Sodium 138 mmol/L (135-145); eGFR > 60.00
[2024-03-23] MEDS: TOPROL XL 12.5 MG PO (08:57)
[2024-03-23] MEDS: KEPPRA 500 MG PO (08:57)
[2024-03-23] MEDS: ELIQUIS 5 MG PO (08:58)
[2024-03-23 11:31] VITALS: BP 121/66
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
--- NOTE | 2024-03-23 12:12 | W.PN.URO.CBU ---
Today's Communication / Plan
-
D/C WHEN OK BY HSPTALIST
Assessment / Plan
-
BLOOD URINE CXS NEG IE BCG RXN HOME WHEN OH=K BY HOSPTALIST
Diagnosis
-
Date of Service: March 23, 2024
-
Patient Diagnosis:
Post Op Day:
Patient Diagnosis:post BCG FEVR HYPOTENDSION POSSIBLE UTI VS RXN TO BCG R/OUT BCG OSIS
Post Op Day:
Subjective
-
FEELS BASELINE
Objective
-
Vital Signs
Temp Pulse Resp BP Pulse Ox
98.3 F 61 20 121/66 97
03/23/24 11:31 03/23/24 11:31 03/23/24 11:31 03/23/24 11:31 03/23/24 11:31
Intake and Output
03/22/24 03/23/24 03/24/24
06:59 06:59 06:59
Intake Total 1680 / 1680
Output Total 150 / 150
Balance 1530 / 1530
Intake:
Oral fluids 1680 / 1680
Output:
Urine, Voided 150 / 150
Other:
Number of approximated MODERATE 2
amounts of urine
Laboratory Results
03/23/24 07:27
03/23/24 07:27
Review of Systems
-
: No Symptoms
Physical Exam
-
General - well developed, well nourished, no acute distress
Chest - clear bilaterally
Abdomen - soft, non-tender, positive bowel sounds, no CVAT, no incisional pain or distention
Genitalia - normal
Rectal - normal
Skin - warm & dry with no rash
Neuro - AOx3, no motor deficits
Extremities - no clubbing, no cyanosis, no edema
Incision - clean, dry
Dressing - clean, dry, intact
Care Review
Data Reviewed
Discussed with: Hospitalist
--- NOTE | 2024-03-23 12:27 | CM ---
Patient is for discharge to home today no needs.
Plan; Home no needs.
--- NOTE | 2024-03-23 12:54 | PN.CDI ---
Addendum entered and electronically signed by James Valdez MD 03/23/24 14:18:
no sepsis
Original Note:
CDI
- -
CDI:
Physician Documentation Request
Admit Date: 03/21/24 23:40
Dear Doctor Courtney,
Patient admitted with UTI.
On admission, WBC 12.3 and temp 101.3
Patient received IV Rocephin.
Please clarify which of the following most accurately describes the status of the patient's infection:
Sepsis, POA
UTI only
Other
Sepsis
- Systemic manifestations of infection, with 2 or more SIRS criteria which include:
- Fever >100.4 degrees F or hypothermia < 96.8 degrees F
- Leukocytosis - WBC > 12,000 or leukopenia - WBC < 4,000 or > 10% bands
- Tachycardia > 90 beats per minute
- Tachypnea - RR > 20 breaths per minute or PaCO2 , 32mmHg
Source: Merck Manual 2013
- Indicate the known or suspected organism
- Indicate the known or suspected underlying infection, such as UTI
Localized Infection Only, Without Systemic Illness
- indicate the site/source, such as UTI
Other
Unable to Determine
Use of terms such as suspected, likely, concern for, or probable (associated with a specific diagnosis that is being evaluated, monitored, or treated as if it exists) are acceptable and can be coded in the inpatient setting, when documented at the
time of discharge.
Thank you,
Melly MCCORMICK,RN,CCDS
CDI Specialist
Available via [employer] [place] text
Please use your independent medical judgment in providing your response.
== END 2024-03-23 13:25 | disposition home or self-care (01) | DRG 690 ==
LOC: 4 WEST ACU 23:40
PROVIDERS: Emergency Medicine; Internal Medicine; Physician Assistant Medical; ADMITTING PHYSICIAN Internal Medicine; ATTENDING PHYSICIAN Internal Medicine; EMERGENCY PHYSICIAN Emergency Medicine; FAMILY PHYSICIAN Family Medicine; OTHER PHYSICIAN Specialist
DX: N39.0 Urinary tract infection, site not specified (principal); I48.21 Permanent atrial fibrillation; I10 Essential (primary) hypertension; J44.9 Chronic obstructive pulmonary disease, unspecified; G40.909 Epilepsy, unspecified, not intractable, without status epilepticus; Z11.52 Encounter for screening for COVID-19
CPT/HCPCS: 71046; 80048; 80053; 81003; 81015; 83605; 85025; 85027; 87040; 87086; 87502; 87811; 96360; 99285

== ENCOUNTER 2024-07-07 06:20 | Day surgery (SDC) | payer OTHER, SELFPAY ==
[2024-07-07] VITALS (9 sets, daily range): BP systolic 101–130; BP diastolic 56–84; BMI 23.7
[2024-07-07] MEDS: NORMOSOL-R/PLASMALYTE-A 1000 IV (09:47)
[2024-07-07 09:50] LABS: Hematocrit 44.8 % (39.0-52.0); Hemoglobin 14.6 g/dL (13.0-18.0); Mean Corp Hgb Conc. 32.6 g/dL (33.0-37.0); Mean Corpuscular Hgb 29.6 pg (27.0-31.0); Mean Corpuscular Volume 90.7 fL (80.0-94.0); Mean Platelet Volume 9.2 fL (7.4-10.4); Platelet Count 173 10^3/uL (130-400); Red Blood Cell Count 4.94 10^6/uL (4.70-6.10); Red Cell Dist. Width 15.7 % (11.5-14.5); White Blood Cell Count 6.5 10^3/uL (4.8-10.8)
[2024-07-07] MEDS: CYSVIEW KIT 100 MG INTRAVES (09:50)
[2024-07-07 10:04] LABS: ALT (SGPT) 28 U/L (0-50); AST (SGOT) 27 U/L (17-59); Albumin 4.4 g/dl (3.5-5.0); Alkaline Phosphatase 147 U/L (38-126); Blood Urea Nitrogen 25 mg/dl (9-20); Calcium 9.5 mg/dl (8.4-10.2); Carbon Dioxide 28 mmol/L (22-30); Chloride 105 mmol/L (98-107); Estimated Creatinine Clearance 58 ml/min; Glucose 100 mg/dl (70-99); Potassium 3.8 mmol/L (3.5-5.1); Sodium 142 mmol/L (135-145); Total Bilirubin 1.2 mg/dl (0.2-1.3); Total Protein 6.9 g/dl (6.3-8.2); eGFR > 60.00
== END 2024-07-07 13:18 | disposition home or self-care (01) ==
LOC: SDS 06:20
PROVIDERS: ATTENDING PHYSICIAN Specialist
DX: N30.10 Interstitial cystitis (chronic) without hematuria (principal); C67.9 Malignant neoplasm of bladder, unspecified
CPT/HCPCS: 52234; C9738; 88305; 80053; 85027; A9589